=== PATIENT | male | born 1950 | race Two or more races ===

== ENCOUNTER → 2016-09-21 | Outpatient (CLI) | payer OTHER ==
--- NOTE | 2016-09-22 11:00 | ECHOF ---
Referral Reason:R01.1 MEASUREMENTS -------- HEIGHT: 167.6 cm WEIGHT: 83.9 kg BP: 167/85 RVIDd: 2.6 cm (< 3.3) IVSd: 1.7 cm (0.6 - 1.1) LVIDd: 5.1 cm (3.9 - 5.3) LVPWd: 1.8 cm (0.6 - 1.1) IVSs: 2.3 cm LVIDs: 3.4 cm LVPWs: 2.1 cm LA Diam: 3.4 cm (2.7 - 3.8) LAESV Index (A-L): 25.08 ml/m Ao Diam: 3.4 cm (2.0 - 3.7) AV Cusp: 1.9 cm (1.5 - 2.6) MV EXCURSION: 18.048 mm (> 18.000) MV EF SLOPE: 41 mm/s (70 - 150) EPSS: 1.7 cm MV E Franco: 0.49 m/s MV DecT: 119 ms MV A Franco: 0.65 m/s MV E/A Ratio: 0.75 AV maxP.88 mmHg AV meanP.15 mmHg FINDINGS -------- Sinus rhythm. This was a technically good study. The left ventricular size is normal. There is severe concentric left ventricular hypertrophy. Overall left ventricular systolic function is normal with, an EF between 60 - 65 %. The right ventricle is normal in size and function. Normal LA size by volume 22+/-6 ml/m2. The right atrium is normal in size. Aortic valve is trileaflet and is moderately thickened. There is mild aortic stenosis present. Peak/mean gradient across the Aortic Valve is 29.88mmHg / 16.15mmHg. Mild mitral annular calcification present. There is trace mitral regurgitation. Trace tricuspid regurgitation present. The pulmonic valve is normal. There is no pulmonic regurgitation present. The aortic root size is normal. Normal inferior vena cava with normal inspiratory collapse consistent with estimated right atrial pressure of 5 mmHg. There is no pericardial effusion. CONCLUSIONS -------- 1. Sinus rhythm. 2. Peak/mean gradient across the Aortic Valve is 29.88mmHg / 16.15mmHg. 3. Mild mitral annular calcification present. 4. There is trace mitral regurgitation. 5. Trace tricuspid regurgitation present. 6. The pulmonic valve is normal. 7. The aortic root size is normal. 8. Normal inferior vena cava with normal inspiratory collapse consistent with estimated right atrial pressure of 5 mmHg. 9. There is no pericardial effusion. 10. This was a technically good study. 11. The left ventricular size is normal. 12. There is severe concentric left ventricular hypertrophy. 13. Overall left ventricular systolic function is normal with, an EF between 60 - 65 %. 14. The right ventricle is normal in size and function. 15. Normal LA size by volume 22+/-6 ml/m2. 16. Aortic valve is trileaflet and is moderately thickened. 17. There is mild aortic stenosis present. PRODUCT DEVELOPMENT COORDINATOR: Jana Bonilla RDCS
== END | disposition home or self-care (01) ==
LOC: RADECHMAIN 08:31
PROVIDERS: ATTEND Family Medicine
DX: I08.3 Combined rheumatic disorders of mitral, aortic and tricuspid valves (principal); I51.7 Cardiomegaly
CPT/HCPCS: 93306

== ENCOUNTER → 2018-05-10 | Outpatient (CLI) | payer MEDICARE ==
--- NOTE | 2018-05-10 09:08 | US ---
EXAMINATION TYPE: US duplex aorta DATE OF EXAM: 05/10/2018 COMPARISON: NONE CLINICAL HISTORY: 67-year-old male Z72.0 Tobacco use. Screening, smoker TECHNIQUE: Multiple sonographic images of the abdominal aorta are obtained. FINDINGS: EXAM MEASUREMENTS: Abdominal Aorta: Proximal: 2.6 x 2.3 cm Mid: 1.8 x 1.8 cm Distal: 1.7 x 1.5 cm Bifurcation: ROBE: 1.0 x 1.1 cm BREEZY: 1.1 x 1.1 cm Proximal portion upper limits of normal, otherwise no evidence of AAA IMPRESSION: Mildly ectatic upper abdominal aorta at 2.6 cm. Otherwise, no evidence for AAA.
== END | disposition home or self-care (01) ==
LOC: RADUSWWP 08:45
PROVIDERS: ATTEND Family Medicine
DX: Z13.89 Encounter for screening for other disorder (principal); Z72.0 Tobacco use
CPT/HCPCS: 93979

== ENCOUNTER 2024-10-11 01:29 | Inpatient (IN) | payer MEDICARE ==
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
[2024-10-11] MEDS: ACETAMINOPHEN TAB 500 MG TAB PO STA (02:29)
[2024-10-11 03:20] LABS: ALT 10 U/L (4-49); African American GFR (CKD) 79 (>60 ml/min/1.73 sqM); Anion Gap 9 mmol/L; Blood Urea Nitrogen 33 mg/dL (9-20); Calcium 8.8 mg/dL (8.4-10.2); Carbon Dioxide 27 mmol/L (22-30); Chloride 100 mmol/L (98-107); Glucose 97 mg/dL (74-99); Non-African American GFR(CKD) 68 (>60 ml/min/1.73 sqM); Sodium 136 mmol/L (137-145)
[2024-10-11 03:21] LABS: Influenza A Not Detected (Not Detectd); Influenza B Not Detected (Not Detectd); RSV Not Detected (Not Detectd)
[2024-10-11 03:22] LABS: AST 25 U/L (17-59); Albumin 3.5 g/dL (3.5-5.0); Alkaline Phosphatase 58 U/L (38-126); Potassium 4.6 mmol/L (3.5-5.1); Total Bilirubin 1.8 mg/dL (0.2-1.3); Total Protein 6.6 g/dL (6.3-8.2)
[2024-10-11] MEDS ORDERED: NALOXONE 0.4 MG/ML 1 ML VIAL IV PRN (04:05)
[2024-10-11] MEDS ORDERED: IBUPROFEN 400 MG TAB PO PRN (04:05)
--- NOTE | 2024-10-11 04:23 | XR ---
EXAM: XR Chest, 2 Views CLINICAL HISTORY: ITS.REASON XR Reason: Fever TECHNIQUE: Frontal and lateral views of the chest. COMPARISON: No relevant prior studies available. FINDINGS: Lungs: No consolidation or mass. Pleural space: No effusion. Heart: cardiomegaly. Bones/joints: No acute findings. IMPRESSION: No acute cardiopulmonary process.
--- NOTE | 2024-10-11 04:51 | P.HPIM ---
History of Present Illness H&P Date: 10/11/24 Patient is a 74-year-old male with history of CVA and legally blind presenting for abandonment. Patient's family states that they are unable to care from, and would like to have him placed in the ECF. Patient is complaining of bilateral leg complaints and states that is chronic. Per ED note provider spoke to ex-, with whom he lives with along with adult daughter, states that he is legally blind and was unable to see shadows for the past few days making him completely dependent for care. She also stated that that he has been losing control of his bowel movements and having periods of altered mental status. She believes that he would be best off in a fci. Patient denies any chills, headache, dizziness, syncope, chest pain, shortness of breath, abdominal pain, nausea, vomiting, diarrhea, urinary symptoms. Patient denies any smoking, alcohol, illicit drug use history. EKG independently interpreted displaying sinus rhythm with short TN interval, left ventricular hypertrophy, vent rate 88 bpm, TN interval 114 ms, QTc 460 ms CXR displays no acute cardiopulmonary process T 100.3 F, TN 83, RR 16, BP 153/97, O2 saturation 96% on room air Cepheid 4-Plex negative for influenza A/B, RSV, COVID Review of systems: Pertinent positives and negatives as discussed in HPI, a complete review of systems was performed and all other systems are negative. Physical examination: Vital signs reviewed General: non toxic, no distress Derm: no unusual rashes/lesions, warm Head: atraumatic, normocephalic, symmetric ENT: Nose and ears atraumatic Mouth: no lip lesion, mucus membranes moist Cardiovascular: S1S2 reg, no murmur, positive dorsalis pedis pulse bilateral, no edema Lungs: CTA bilateral, no rhonchi, no rales, no accessory muscle use Abdominal: soft, nontender to palpation, no guarding Ext: muscle strength 2 out of 5 b/l LE extremities grossly Neuro: CN II-XI grossly intact, no gross focal neuro deficits Psych: Alert, oriented to person, place, unsure of year Assessment/Plan: Patient is a 34-year-old male with no known medical history presenting with altered mental status. ED documentation reviewed. Discussed with patient. The patient is admitted with an anticipated greater than 2 midnight stay for evaluation of altered mental status. #. Failure to thrive in the setting of debility Fall precautions PT/OT consult Normal saline at 100 cc/hr Acetaminophen 650 mg PO q6hr and Ibuprofen 400 mg PO q6hr prn for pain management Contact case management regarding placement Cepheid 4 Plex unremarkable CBC and coag panel pending DVT prophylaxis: Lovenox 40 SQ daily CODE STATUS: Full code Anticipated discharge place: Pending clinical course Prachi Swan MD PGY-1 IM Dictation was produced using [employer] dictation software. please excuse any grammatical, word or spelling errors. I have seen and evaluated the patient today. I Discussed the case with the resident and agree with the resident's findings I edited the assessment and plan as necessary as documented in the resident's note. Past Medical History Additional Past Medical History / Comment(s): pt is blind History of Any Multi-Drug Resistant Organisms: Unobtainable Past Surgical History: Unable to Obtain Past Psychological History: Unable to Obtain Smoking Status: Never smoker Past Alcohol Use History: None Reported Past Drug Use History: None Reported Medications and Allergies Allergies Allergy/AdvReac Type Severity Reaction Status Date / Time No Known Allergies Allergy Verified 10/11/24 02:21 Physical Exam Vitals: Vital Signs Temp Pulse Resp BP Pulse Ox 10/11/24 02:38 98.4 F 84 18 149/104 100 10/11/24 01:31 100.3 F H 83 16 153/97 96 Intake and Output 10/10/24 10/10/24 10/11/24 14:59 22:59 06:59 Other: Weight 77.111 kg Results CBC & Chem 7: 10/11/24 02:16 Labs: Abnormal Lab Results - Last 24 Hours (Table) 10/11/24 Range/Units 02:16 Sodium 136 L (137-145) mmol/L BUN 33 H (9-20) mg/dL Total Bilirubin 1.8 H (0.2-1.3) mg/dL
[2024-10-11] MEDS: SODIUM CHLORIDE 0.9% 1,000 ML IV SCH (05:35)
[2024-10-11 05:59] LABS: Amorphous Sediment,Urine Rare /hpf; Appearance,Urine Clear (Clear); Bilirubin,Urine Negative (Negative); Blood,Urine Negative (Negative); Color,Urine Yellow; Glucose,Urine (UA) Negative (Negative); Hyaline Casts,Urine 1 /lpf (0-2); Ketones,Urine Negative (Negative); Leukocyte Esterase,Urine Negative (Negative); Nitrite,Urine Negative (Negative); PH, Urine 5.5 (5.0-8.0); Protein,Urine 1+ (Negative); RBC,Urine 4 /hpf (0-5); Specific Gravity,Urine 1.021 (1.001-1.035); Squamous Epithelial Cell,Urine 4 /hpf (0-4); WBC,Urine 4 /hpf (0-5)
[2024-10-11 06:02] LABS: INR 1.1 (<1.2); Partial Thromboplastin Time 24.6 sec (22.0-30.0); Prothrombin Time 11.8 sec (10.0-12.5)
[2024-10-11 06:16] LABS: Basophils % (A) 0 %; Eosinophils % (A) 0 %; HCT 35.7 % (39.0-53.0); HGB 11.3 gm/dL (13.0-17.5); Lymphocytes # (A) 0.6 k/uL (1.0-4.8); Lymphocytes % (A) 6 %; MCH 30.5 pg (25.0-35.0); MCHC 31.5 g/dL (31.0-37.0); MCV 96.7 fL (80.0-100.0); Mean Platelet Volume 10.5; Monocytes # (A) 0.6 k/uL (0-1.0); Monocytes % (A) 6 %; Neutrophils # (A) 9.3 k/uL (1.3-7.7); Neutrophils % (A) 86 %; Platelet Count 250 k/uL (150-450); RBC 3.69 m/uL (4.30-5.90); RDW 15.5 % (11.5-15.5); WBC 10.8 k/uL (3.8-10.6)
[2024-10-11 08:25] LABS: Glucose,Whole Blood 62 mg/dL (70-110)
[2024-10-11] MEDS: ENOXAPARIN 40 MG/0.4 ML SYRINGE SQ SCH (10:36)
[2024-10-11] MEDS: ZINC OXIDE PASTE (Z-GUARD) 1 APPLIC TOPICAL PRN (15:59)
[2024-10-12] MEDS: ACETAMINOPHEN TAB 325 MG TAB PO PRN (05:59)
[2024-10-12 11:10] LABS: HCT 30.5 % (39.0-53.0); HGB 9.9 gm/dL (13.0-17.5); MCH 30.8 pg (25.0-35.0); MCHC 32.4 g/dL (31.0-37.0); MCV 94.9 fL (80.0-100.0); Mean Platelet Volume 7.7; Platelet Count 220 k/uL (150-450); RBC 3.21 m/uL (4.30-5.90); WBC 8.2 k/uL (3.8-10.6)
[2024-10-12 11:34] LABS: African American GFR (CKD) 80 (>60 ml/min/1.73 sqM); Anion Gap 6 mmol/L; Blood Urea Nitrogen 26 mg/dL (9-20); Calcium 8.2 mg/dL (8.4-10.2); Carbon Dioxide 25 mmol/L (22-30); Chloride 102 mmol/L (98-107); Glucose 109 mg/dL (74-99); Non-African American GFR(CKD) 70 (>60 ml/min/1.73 sqM); Potassium 3.2 mmol/L (3.5-5.1); Sodium 133 mmol/L (137-145)
[2024-10-12 13:22] VITALS: BMI 24.3
--- NOTE | 2024-10-12 14:20 | P.PN ---
Subjective Progress Note Date: 10/12/24 74 year old M PMH of CVA and blindness presents to the ED inability of family to take care of the patient. Family reported intermitted bouts of confusion and altered mentation. In the ED he underwent extensive evaluation. T 100.3 F, MT 83, RR 16, BP 153/97, O2 saturation 96% on room air. CBC, Coag panel, CMP significant for WBC 10.8, RBC 3.69, Hg 11.3, Hct 35.7, Na 136, BUN 33, glu 62, T. Bili 1.8. UA neg LE or nitrite. EKG showed sinus rhythm with short MT interval, left ventricular hypertrophy, vent rate 88 bpm, MT interval 114 ms, QTc 460 ms. CXR showed no acute cardiopulmonary process. COVID, RSV, Flu neg. Admitted for further workup and management. 10/12 Patient was seen and examined. No acute events overnight. CBC and BMP significant for RBC 3.22, Hg 9.9, Hct 30.5, Na 133, K 3.2, BUN 26, glu 109, Ca 8.2. General: non toxic, no distress, appears at stated age Derm: warm, dry Head: atraumatic, normocephalic, symmetric Mouth: no lip lesion, mucus membranes moist Cardiovascular: S1S2 reg, no murmur Lungs: Clear to auscultation bilaterally, no accessory muscle use Abd: Non tender to palpation Ext: no gross muscle atrophy, no edema, no contractures Neuro: no focal neuro deficits Psych: Alert and oriented. Based on my assessment of this patient, this patient meets a high complexity level of care. Altered mental status: Obtain B12, Folate, TSH. Fall precautions. Avoid sedative medications. Window side bed. PT and OT consulted. Case management for placement. HypoK: KCl 20 meq PO x 1. Repeat in the AM. CVA and blindness: Patient would benefit from ASA and statin. Defer to PCP. CODE STATUS: FULL CODE. DVT Prophylaxis: Lovenox GI Prophylaxis: Designated medical POA if patient is not able to make medical decisions for themselves: I have reviewed the following technical sales consultant notes: I have reviewed the results of the following tests: CBC, BMP. I have ordered the following tests: BMp in the AM. B12, Folate, TSH. I have discussed the care of this patient with the following independent historian: SANDY. I have independently interpreted the following test below: I have discussed the management of this patient with the following physician: Objective - Vital Signs Vital signs: Vital Signs Temp 98.8 F 10/12/24 07:59 Pulse 85 10/12/24 07:59 Resp 17 10/12/24 07:59 BP 154/84 10/12/24 07:59 Pulse Ox 97 10/12/24 07:59 FiO2 Intake & Output 10/11/24 10/12/24 10/12/24 18:59 06:59 18:59 Intake Total 2640 Balance 2640 Weight 77.111 kg Intake: Intake, IV Titration 300 Amount Sodium Chloride 0.9% 1, 300 000 ml @ 100 mls/hr IV . Q10H [facility] Rx#:[id number] Oral 2340 Other: Voiding Method Diaper Diaper # Voids 4 2 # Bowel Movements 1 - Labs CBC & Chem 7: 10/12/24 10:51 10/12/24 10:51 Labs: Abnormal Lab Results - Last 24 Hours (Table) 10/12/24 10/12/24 Range/Units 10:51 10:51 RBC 3.21 L (4.30-5.90) m/uL Hgb 9.9 L (13.0-17.5) gm/dL Hct 30.5 L (39.0-53.0) % Sodium 133 L (137-145) mmol/L Potassium 3.2 L (3.5-5.1) mmol/L BUN 26 H (9-20) mg/dL Glucose 109 H (74-99) mg/dL Calcium 8.2 L (8.4-10.2) mg/dL
[2024-10-12] MEDS: POTASSIUM CHLORIDE ER 20 MEQ TAB.ER PO STA (17:47)
[2024-10-12] MEDS: MELATONIN 5 MG TABLET PO PRN (20:31)
--- NOTE | 2024-10-13 10:50 | P.PN ---
Subjective Progress Note Date: 10/13/24 74 year old M PMH of CVA and blindness presents to the ED inability of family to take care of the patient. Family reported intermitted bouts of confusion and altered mentation. In the ED he underwent extensive evaluation. T 100.3 F, VT 83, RR 16, BP 153/97, O2 saturation 96% on room air. CBC, Coag panel, CMP significant for WBC 10.8, RBC 3.69, Hg 11.3, Hct 35.7, Na 136, BUN 33, glu 62, T. Bili 1.8. UA neg LE or nitrite. EKG showed sinus rhythm with short VT interval, left ventricular hypertrophy, vent rate 88 bpm, VT interval 114 ms, QTc 460 ms. CXR showed no acute cardiopulmonary process. COVID, RSV, Flu neg. Admitted for further workup and management. 10/13 Patient was seen and examined. No acute events overnight. Pins and needles in the bilateral lower extremities. B12 177, Folate 2.7, TSH 1.72. General: non toxic, no distress, appears at stated age Derm: warm, dry Head: atraumatic, normocephalic, symmetric Mouth: no lip lesion, mucus membranes moist Cardiovascular: S1S2 reg, systolic murmur Lungs: Clear to auscultation bilaterally, no accessory muscle use Abd: Non tender to palpation Ext: no gross muscle atrophy, no edema, no contractures Neuro: no focal neuro deficits Psych: Alert and oriented. Based on my assessment of this patient, this patient meets a high complexity level of care. Altered mental status: B12 177, Folate 2.7, TSH 1.72. Fall precautions. Avoid sedative medications. Window side bed. PT and OT consulted. Case management for placement. B12 def: Cyanocobalamin 1000 mcg IM daily. Folate def: Folic acid 1 mg PO QD. Normocytic anemia: Unknown etiology. Low B12 and Folate being treated as above. Obtain iron studies. Transfuse if Hg < 7. HypoK: KCl 20 meq PO x 1. Repeat in the AM. Hypoglycemia: Accuchecks ACHS. CVA and blindness: Patient would benefit from ASA and statin. Defer to PCP. CODE STATUS: FULL CODE. DVT Prophylaxis: Lovenox GI Prophylaxis: Designated medical POA if patient is not able to make medical decisions for themselves: I have reviewed the following recruitment consultant notes: I have reviewed the results of the following tests: B12, Folate, TSH. I have ordered the following tests: CBC and BMP in the AM. Iron studies. I have discussed the care of this patient with the following independent historian: I have independently interpreted the following test below: I have discussed the management of this patient with the following physician: Objective - Vital Signs Vital signs: Vital Signs Temp 97.8 F 10/13/24 06:51 Pulse 71 10/13/24 06:51 Resp 18 10/13/24 06:51 BP 146/83 10/13/24 06:51 Pulse Ox 96 10/13/24 06:51 FiO2 Intake & Output 10/12/24 10/13/24 10/13/24 18:59 06:59 18:59 Intake Total 1320 100 Balance 1320 100 Weight 77.111 kg Intake: Intake, IV Titration 100 Amount Sodium Chloride 0.9% 1, 100 000 ml @ 100 mls/hr IV . Q10H [facility] Rx#:[id number] Oral 1320 Other: Voiding Method Diaper # Voids 4 1 # Bowel Movements 3 1 - Labs CBC & Chem 7: 10/12/24 10:51 10/12/24 10:51 Labs: Abnormal Lab Results - Last 24 Hours (Table) 10/12/24 10/12/24 10/12/24 Range/Units 10:51 10:51 10:51 RBC 3.21 L (4.30-5.90) m/uL Hgb 9.9 L (13.0-17.5) gm/dL Hct 30.5 L (39.0-53.0) % Sodium 133 L (137-145) mmol/L Potassium 3.2 L (3.5-5.1) mmol/L BUN 26 H (9-20) mg/dL Glucose 109 H (74-99) mg/dL Calcium 8.2 L (8.4-10.2) mg/dL Vitamin B12 177.0 L (200.0-944.0) pg/mL Folate 2.70 L (4.40-31.00) ng/mL
[2024-10-13 12:09] LABS: Glucose,Whole Blood 160 mg/dL (70-110)
[2024-10-13] MEDS: CYANOCOBALAMIN 1,000 MCG/ML 1 ML VIAL IM SCH (12:50)
[2024-10-13] MEDS: FOLIC ACID 1 MG TAB PO SCH (12:51)
[2024-10-13 17:17] LABS: Glucose,Whole Blood 164 mg/dL (70-110)
[2024-10-13 20:13] LABS: Glucose,Whole Blood 105 mg/dL (70-110)
[2024-10-14 04:28] LABS: HCT 33.5 % (39.0-53.0); HGB 10.7 gm/dL (13.0-17.5); Hypochromasia Moderate; MCHC 32.1 g/dL (31.0-37.0); MCV 96.5 fL (80.0-100.0); Mean Platelet Volume 8.2; Platelet Count 266 k/uL (150-450); RBC 3.47 m/uL (4.30-5.90); RDW 14.8 % (11.5-15.5); WBC 6.1 k/uL (3.8-10.6)
[2024-10-14 05:00] LABS: African American GFR (CKD) >90 (>60 ml/min/1.73 sqM); Anion Gap 7 mmol/L; Blood Urea Nitrogen 26 mg/dL (9-20); Calcium 8.6 mg/dL (8.4-10.2); Carbon Dioxide 24 mmol/L (22-30); Chloride 101 mmol/L (98-107); Glucose 84 mg/dL (74-99); Non-African American GFR(CKD) 86 (>60 ml/min/1.73 sqM); Sodium 132 mmol/L (137-145)
[2024-10-14 07:58] VITALS: TEMP 97.9
--- NOTE | 2024-10-14 12:10 | P.DS ---
Providers Date of admission: 10/11/24 08:17 Attending physician: Geni Shearer MD Primary care physician: Stated None Hospital Course: Discharge Diagnosis: Vitamin B12 deficiency Folate deficiency Normocytic anemia secondary to above Hypokalemia, resolved Hypoglycemia, resolved CVA, legally blind Hospital Course: 74 year old M PMH of CVA and blindness presents to the ED inability of family to take care of the patient. Family reported intermitted bouts of confusion and altered mentation. In the ED he underwent extensive evaluation. T 100.3 F, GA 83, RR 16, BP 153/97, O2 saturation 96% on room air. CBC, Coag panel, CMP significant for WBC 10.8, RBC 3.69, Hg 11.3, Hct 35.7, Na 136, BUN 33, glu 62, T. Bili 1.8. UA neg LE or nitrite. EKG showed sinus rhythm with short GA interval, left ventricular hypertrophy, vent rate 88 bpm, GA interval 114 ms, QTc 460 ms. CXR showed no acute cardiopulmonary process. COVID, RSV, Flu neg. Admitted for further workup and management. Patient remained afebrile after admission, with stable vitals showing elevated blood pressure, he will be started on amlodipine 10 and discharge, close follow- up with PCP recommended. His blood work was significant for vitamin B12 and folate deficiency he received intramuscular cyanocobalamin, will be discharged on 2 mg of oral cyanocobalamin daily along with folic acid 1 mg p.o. daily. Recommend to discuss with primary care physician initiation of aspirin and statins in the settings of history of CVA. Plan to discharge to [facility]. Patient seen and examined at bedside. Vital signs reviewed and stable. General: non toxic, no distress, appears at stated age Derm: warm, dry Head: atraumatic, normocephalic, symmetric Mouth: no lip lesion, mucus membranes moist Cardiovascular: S1S2 reg, systolic murmur Lungs: Clear to auscultation bilaterally, no accessory muscle use Abd: Non tender to palpation Ext: no gross muscle atrophy, no edema, no contractures Neuro: no focal neuro deficits Psych: Alert and oriented. A total of 45 minutes of time were spent preparing this complex discharge summary. Patient was discharged on 10/14/2024. Patient Condition at Discharge: Good Plan - Discharge Summary New Discharge Prescriptions: New Folic Acid 1 mg PO DAILY #30 tab amLODIPine 10 mg PO DAILY #30 tab Melatonin 5 mg PO HS PRN #30 tab PRN Reason: Insomnia Cyanocobalamin (Vitamin B-12) [Vitamin B-12] 2,000 mcg PO DAILY #30 tab Discharge Medication List Cyanocobalamin (Vitamin B-12) [Vitamin B-12] 2,000 mcg PO DAILY #30 tab 10/14/24 [Rx] Folic Acid 1 mg PO DAILY #30 tab 10/14/24 [Rx] Melatonin 5 mg PO HS PRN #30 tab 10/14/24 [Rx] amLODIPine 10 mg PO DAILY #30 tab 10/14/24 [Rx] Follow up Appointment(s)/Referral(s): None,Stated [Primary Care Provider] - 1-2 days Patient Instructions/Handouts: Folic Acid (By mouth), Vitamin B12 Deficiency (GEN) Activity/Diet/Wound Care/Special Instructions: Patient would benefit from ASA and statin, needs to address it with PCP Continue folate and vitamin b12 supplements. Discharge Disposition: TRANSFER TO SNF/ECF
[2024-10-14 13:16] VITALS: BP 143/74; PULSE 74; RESP 19
[2024-10-14 21:12] LABS: Iron 31 UG/DL (65-175); Total Iron Binding Capacity 223 UG/DL (228-460)
== END 2024-10-14 18:02 | DRG 641 ==
LOC: EC 01:29 → 5NMEDONC 04:07 → OBSVTOIN 08:17
PROVIDERS: ADMIT Internal Medicine; ATTEND Internal Medicine
DX: E53.8 Deficiency of other specified B group vitamins (principal); R62.7 Adult failure to thrive; D64.9 Anemia, unspecified; T76.01XA Adult neglect or abandonment, suspected, initial encounter; E87.6 Hypokalemia; E16.2 Hypoglycemia, unspecified; H54.8 Legal blindness, as defined in USA; Z86.73 Personal history of transient ischemic attack (TIA), and cerebral infarction without residual deficits; Z68.24 Body mass index [BMI] 24.0-24.9, adult
CPT/HCPCS: 36415; 71046; 80048; 80053; 81001; 82607; 82728; 82746; 83540; 83550; 84443; 85025; 85027; 85610; 85730; 87636; 93005; 99285